=== PATIENT | female | born 1990 | race Caucasian/White ===

== ENCOUNTER 2017-03-14 12:08 | Inpatient (IN) ==
[2017-03-14] MEDS ORDERED: DINOPROSTONE 10 MG VAGINAL INSERT VG ONE (12:53)
[2017-03-14] MEDS ORDERED: TERBUTALINE 1 MG/ML VIAL SQ PRN (12:53)
[2017-03-14] MEDS ORDERED: LIDOCAINE 1% (10mg/ml) 2mL INJ PF SDV ID PRN (12:55)
[2017-03-14] MEDS ORDERED: METHYLERGONOVINE 0.2 MG/ML INJECTION IM PRN (12:55)
[2017-03-14] MEDS ORDERED: MAG-AL + SIM ORAL LIQUID 30ml PO PRN (12:55)
[2017-03-14] MEDS ORDERED: CARBOPROST 250 MCG/ML INJECTION IM PRN (12:55)
[2017-03-14] MEDS ORDERED: CALCIUM CARBONATE Chewable 500mg TABLET PO PRN (12:55)
[2017-03-14 13:21] VITALS: BMI 41.8
--- NOTE | 2017-03-14 15:01 | OB/GYN Progress Note ---
- Pain Control Comments: No Pain - Pelvic Exam Dilation (cm): 0 Effacement (%): 0 station: -4 Amniotic membrane status: Intact Comments: Anterior cervix, mod firm, Vtx by bedside sono - Contractions Monitor mode: External Contraction pattern: Irregular Contraction intensity: Mild - Status status: Category l - Assessment and Plan Assessment: induction ongoing Comments: at 39w5d with documented elevated bp in office, had 24 TUP greater than 300. UA was negative for UTI no other indication for proteinuria. Diagnosis of preeclampsia with out severe features. Discussed Indications for induction of labor along with R/B/A, discussed need indications for cervical ripening along with R/B/A . present for conversation. Questions elicited and answered. Cervidil placed with out difficulty tolerated by patient and fetus. Plts and AST/ALT wnl, Cr wnl. continue to monitor for signs and symptoms of severe preeclampsia
--- NOTE | 2017-03-14 19:21 | Anesthesia Preoperative Report ---
Anesthesia Epidural/Spinal Rec - Date and Time Date: 03/15/17 Preoperative Diagnosis: pre eclampsia Procedure: Labor Epidural Plan: Epidural - Vital Signs Vital Signs: Temperature 97.9 F 03/14/17 13:05 Pulse Rate 129 H 03/14/17 13:05 Respiratory Rate 16 03/14/17 13:05 Blood Pressure 134/77 03/14/17 13:05 /Para: P:0 - Medictaions & Allergies Inpatient Medications: Current Medications Acetaminophen (Tylenol) 500 - 1,000 mg PO Q4H PRN PRN Reason: Pain Al Hydroxide/Mg Hydroxide (Maalox Plus) 30 ml PO Q3H PRN PRN Reason: Indigestion Calcium Carbonate (Tums) 500 - 1,000 mg PO Q2H PRN PRN Reason: Indigestion Carboprost Tromethamine (Hemabate) 250 mcg IM O PRN PRN Reason: .Downtime Diphenhydramine HCl (Benadryl) 50 mg PO HS PRN PRN Reason: Sleep Lactated Ringer's (Lactated Ringers) 1,000 mls @ 999 mls/hr IV .Q1H1M PRN Lidocaine HCl (Xylocaine-Mpf 1% Vial) 0.2 mg ID O PRN PRN Reason: IV Start Methylergonovine Maleate (Methergine) 0.2 mg IM O PRN Misoprostol (Cytotec) 800 mcg CA ONCE PRN Terbutaline Sulfate (Brethine) 0.25 mg SQ PRN PRN Allergies/Adverse Reactions: Allergies Allergy/AdvReac Type Severity Reaction Status Date / Time No Known Drug Allergies Allergy Unknown Verified 03/14/17 15:30 - Home Medications Home Medications: Home Medications Medication Instructions Recorded Confirmed Type Acetaminophen 325 - 650 mg PO Q5HR PRN 03/13/17 03/14/17 History Vit Calc,Iron,Folic 1 each PO DAILY 03/13/17 03/14/17 History [ Vitamins] - Medical History Respiratory: DENIES: Asthma, Bronchitis, Chronic Obstructive Pulmonary Disease (COPD), Dyspnea, Orthopnea, Pulmonary Embolism, Pneumonia, Upper Respiratory Infection, Pulmonary Edema, Sleep Apnea, Tuberculosis, Other Cardiovascular: Reports: Hypertension (mild preeclampsia), 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 by client application support specialist) Gastrointestional: Reports: Gastroesophageal Reflux Disease (with ) Neuro/Musculoskeletal: Denies: HX.MS.OSAR, Back Problems, Cerebrovascular Accident, Depression, Headaches, Loss of Consciousness, Muscle Weakness, Neuromuscular Disorder, Paralysis, Paresthesia, Syncope, Seizures, Other Renal/Endocrine: DENIES: Diabetes Mellitus Type 1, Diabetes Mellitus Type 2, Renal Failure, Dialysis, Thyroid Disease, Weight Loss, Weight Gain, Other Other History: DENIES: Anesthesia Reactions, Now, Blood Transfusions, Chemotherapy , Cancer, Hemophilia, Malignant Hyperthermia, Sickle Cell Disease, Other - Surgical History Anesthesia Reactions: None Hx Family Anesthesia Reaction: No History of Motion Sickness: No - Social History Smoking Status: Never smoker Substance Use Type: does not use - Pertinent Findings Lab Data: CBC and BMP 03/14/17 13:11 03/14/17 13:08 BMP 03/14/17 13:08 Sodium 139 Potassium 3.8 Chloride 111 H Carbon Dioxide 19 L BUN 7.0 Creatinine 0.5 L Glucose 86 Calcium 9.1 Liver Function 03/14/17 Range/Units 13:08 Total Bilirubin 0.70 (0.20-1.30) MG/DL AST 19 (14-36) U/L ALT 34 (9-52) U/L Alkaline Phosphatase 116 (38-126) U/L Albumin 3.6 (3.5-5.0) G/DL Urine 03/14/17 Range/Units 14:18 Urine Color Yellow (YELLOW) Urine Clarity Clear Urine pH 6.5 (5.0-8.0) Ur Specific [place] 1.020 (1.015-1.025) Urine Protein Negative (NEGATIVE) Urine Glucose (UA) Negative (NEGATIVE) EKG Rhythm: Normal Sinus Rhythm - Physical Exam Respiratory Exam: lungs clear, bilateral breath sounds equal Cardiovascular Exam: regular rate and rhythm, no murmur - Airway Assessment Mallampati Score: II TMD: 3 Fingerbreadths Neck Extension: good Overall Assessment: may be difficult intubation - ASA ASA Score: 2 - Discussion Discussion: Discussed risks/options/alternatives of anesthesia and questions answered. Patient consents. Nursing pain assessment noted. Anesthesia Discussion: spouse, family member Attestation Statement: Prior to the delivery of any anesthetic medication, I examined the patient, developed the plan, obtained the patient's consent and discussed the risk and benefits of the procedure with the patient/guardian.
[2017-03-14] MEDS: ACETAMINOPHEN 500 MG TABLET PO PRN (21:52)
[2017-03-15] MEDS: ACETAMINOPHEN 500 MG TABLET PO PRN (04:26)
--- NOTE | 2017-03-15 06:22 | OB/GYN Progress Note ---
- Pain Control Pain control: Tolerating well Comments: Scott pt states they are moderate. no request for anesthesia at this time. - Pelvic Exam Dilation (cm): 1 Effacement (%): 70 station: -4 Amniotic membrane status: Intact - Contractions Monitor mode: External Contraction frequency: 3 Contraction pattern: Regular Contraction intensity: Moderate - Status status: Category l Comments: 120 moderate variability with Reactive, strip from overnight reviewed Cat 1 - Assessment and Plan Assessment: induction ongoing (Doyle Bulb placed without difficulty)
[2017-03-15] MEDS: SALINE FLUSH 10ml SYRINGE IV PRN ×2 (06:28→10:02)
[2017-03-15] MEDS ORDERED: D5LR 1,000 ML IV PRN (09:34)
[2017-03-15] MEDS ORDERED: OXYTOCIN DRIP 30 UNIT/500 ML ML IV PRN (09:34)
[2017-03-15] MEDS: LR 1,000 ML IV PRN ×2 (10:05→14:10)
[2017-03-15] MEDS ORDERED: AZITHROMYCIN IV 500 MG in NS 250ml 250 ML IV ONE (15:15)
[2017-03-15] MEDS ORDERED: ONDANSETRON 4 MG/2 ML INJECTION ONE (15:32)
[2017-03-15] MEDS ORDERED: LIDOCAINE 1.5% W/EPI 1:200,000 30ml SDV PF ONE (15:32)
[2017-03-15] MEDS ORDERED: EPHEDRINE 50mg/ml INJECTION ONE (15:35)
--- NOTE | 2017-03-15 16:01 | OB/GYN Progress Note ---
- Pain Control Pain control: Epidural - Pelvic Exam Dilation (cm): 4 Effacement (%): 70 station: -3 Amniotic membrane status: Intact - Contractions Monitor mode: External Contraction frequency: 3 Contraction pattern: Regular Contraction intensity: Moderate - Status status: Category ll - Assessment and Plan Assessment: induction ongoing Comments: Pt received epidural was have Cat 2 FHT with Variable deceleration Was noted to be 4/60/-3 head was well applied. OR crew was on stand by and decision was to proceed with amniotomy. Clear fluid and no cord prolapse. the Variable deceleration however increased in depth and duration. Discussion of need to proceed with PLTCS for non reassuring FHT. Discussed R/B/S to procedure including infection, injury to bowel bladder, infant, bleeding with need for transfusion and . Questions elicited and answered.
[2017-03-15] MEDS ORDERED: MORPHINE SULFATE PF 5mg/10ml INJ (Duramorph) ONE (16:02)
--- NOTE | 2017-03-15 16:07 | Operative Note ---
Operative Note - Date of Operation Date of Operation: 03/15/17 - General : 1 Para: 0 Expected Date of Delivery: 03/16/17 - Preoperative Diagnosis Nonreassuring FHT Preoperative Diagnosis: Preeclampsia wit out severe features - Postoperative Diagnosis nonreassuring FHT - Procedure Primary - Surgeon Surgeon: Lazaro Bojorquez DO - Laborer [place] Prashanth Eddy MD - Anesthesia Anesthesia Provider: Robert Johnson CRNA Anesthesia Type: Epidural - Estimated Blood Loss Estimated Blood Loss:: 600 - Findings Findings: viable male Comments: Cassandra - APGARS : 8/9 - Weight 3820 kg - Name [place] Name: Delta - Indications Indications: Non Reassuring FHT - Description of Procedure Description of Procedure: See Dictation #[id number] Report ID [id number]
[2017-03-15] MEDS ORDERED: SIMETHICONE 80 MG CHEWABLE TABLET PO PRN (16:36)
[2017-03-15] MEDS ORDERED: ACETAMINOPHEN 500 MG TABLET PO PRN (16:36)
[2017-03-15] MEDS ORDERED: OXYTOCIN DRIP 30 UNIT/500 ML ML IV SCH (16:36)
[2017-03-15] MEDS ORDERED: HYDROCORTISONE 2.5% CREAM 30gm RECTALLY PRN (16:36)
[2017-03-15] MEDS ORDERED: DiphenhydrAMINE 25 MG CAPSULE PO PRN (16:36)
[2017-03-15] MEDS ORDERED: CALCIUM CARBONATE Chewable 500mg TABLET PO PRN (16:36)
[2017-03-15] MEDS ORDERED: D5LR 1,000 ML IV SCH (16:36)
[2017-03-15] MEDS ORDERED: ONDANSETRON 4 MG/2 ML INJECTION IVP PRN (18:00)
[2017-03-15] MEDS ORDERED: NALOXONE 2 MG/2 ML INJECTION PFS IVP PRN (18:00)
[2017-03-15] MEDS ORDERED: DiphenhydrAMINE 50 MG/ML INJECTION IVP PRN (18:00)
[2017-03-15] MEDS: SIMETHICONE 80 MG CHEWABLE TABLET PO SCH ×2 (18:43→22:36)
[2017-03-15] MEDS: IBUPROFEN 800 MG TABLET PO PRN (23:51)
[2017-03-15] MEDS: Oxycodone/Acetaminophen 5/325 1 TAB PO PRN (23:51)
--- NOTE | 2017-03-16 08:10 | OB/GYN Progress Note ---
<Kaci Agosto - Last Filed: 03/16/17 08:08> OB-PP Progress Note - General POD:: POD1 - Subjective Date: 03/16/17 Lochia: Minimal Pain: contolled Voiding: voiding Nausea or Vomiting Present: No - Objective Vital Signs: Last Vital Signs Temp 98.0 F 03/16/17 04:15 Pulse 94 03/16/17 04:15 Resp 16 03/16/17 04:15 BP 109/54 03/16/17 04:15 Pulse Ox 99 03/16/17 04:15 Urine Output: good General: alert and oriented Abdomen: fundus firm Incision: intact Extremities: non-tender Edema: none Laboratory: Laboratory Results - last 24 hr 03/15/17 03/16/17 03/16/17 20:15 01:09 05:19 WBC 11.4 H 12.3 H 9.9 RBC 3.86 L 3.86 L 3.93 L Hgb 11.3 L 11.3 L 11.5 L Hct 34.3 L 34.1 L 35.3 L MCV 88.9 88.3 89.8 MCH 29.3 29.3 29.3 MCHC 32.9 33.1 32.6 RDW Std Deviation 42.1 42.4 43.8 Plt Count 142 158 146 MPV 11.2 10.7 11.0 - Assessment (1) S/P primary low transverse Status: Acute - Assessment Assessment: Primary C/S - Plan Plan: routine care (Doing well. No complaints. ) <Emely Pairkh - Last Filed: 03/16/17 11:15> OB-PP Progress Note - Subjective Date: 03/16/17 - Objective Vital Signs: Last Vital Signs Temp 98.0 F 03/16/17 08:20 Pulse 100 03/16/17 08:20 Resp 16 03/16/17 08:20 BP 108/58 03/16/17 08:20 Pulse Ox 99 03/16/17 08:20 Laboratory: Laboratory Results - last 24 hr 03/15/17 03/16/17 03/16/17 20:15 01:09 05:19 WBC 11.4 H 12.3 H 9.9 RBC 3.86 L 3.86 L 3.93 L Hgb 11.3 L 11.3 L 11.5 L Hct 34.3 L 34.1 L 35.3 L MCV 88.9 88.3 89.8 MCH 29.3 29.3 29.3 MCHC 32.9 33.1 32.6 RDW Std Deviation 42.1 42.4 43.8 Plt Count 142 158 146 MPV 11.2 10.7 11.0 - Assessment (1) S/P primary low transverse Status: Acute - Assessment Assessment: Preeclampsia - Plan Patient seen, and I agree with Kaci's note. Her BP is coming down well. Labs stable. Incision intact.
[2017-03-16] MEDS ORDERED: DOCUSATE CALCIUM 240 MG CAPSULE PO SCH (09:00)
--- NOTE | 2017-03-16 09:01 | Operative Note ---
DATE OF PROCEDURE: 03/14/2017 PREOPERATIVE DIAGNOSES 1. Single live intrauterine at 39 and 6 weeks gestational age. 2. Preeclampsia without severe features. 3. intolerance to labor. POSTOPERATIVE DIAGNOSES 1. Single live intrauterine at 39 and 6 weeks gestational age-- delivered. 2. Preeclampsia without severe features. 3. intolerance to labor. 4. Nuchal cord x 2. PROCEDURE: Primary delivery. SURGEON: Lazaro Bojorquez DO STONE CRUSHER OPERATOR: Prashanth Eddy MD BREAKER UP: Robert Johnson CRNA ANESTHESIA: Epidural anesthesia. COMPLICATIONS: None. ESTIMATED BLOOD LOSS: 600 mL IV FLUID: 1100 mL URINE OUTPUT: 250 mL clear urine at the end of the procedure. FINDINGS: Normal uterus, tubes and ovaries along with a viable male infant named [place] with Apgars of 8/9 and weight 3820 grams. INDICATIONS FOR PROCEDURE This was a G1, para 0 who presented to Labor and Delivery for induction of labor secondary to preeclampsia without severe features at term. She underwent cervical ripening with Cervidil and a Doyle bulb and Pitocin was started on the second day of induction, 03/14/2017. She got to a max dose of 6 on Pitocin and was noted to be dilated to 4 cm, 70% effaced and -3 station. She had had category 1 heart tracing for the majority of the induction with occasional variables and at this time the variables had increased to almost every contraction. The variability remained moderate. The Pitocin was halved at this time and the variables improved slightly. She had received an epidural anesthesia and was comfortable on exam. No cord was palpable and decision was made to AROM to see if this could continue to help with the variables. When the AROM was performed, clear fluid was noted and head was well applied but she continued to have variables and they progressed with deeper and longer duration. At this time decision was made to proceed with emergent secondary to heart tones. We discussed the risks, benefits and alternatives to procedure including infection, injury to bowel, bladder and baby , bleeding with the need for transfusion, and . Questions were elicited and answered. DESCRIPTION OF PROCEDURE The patient was taken to the operating room where epidural anesthesia was noted to be adequate. She was prepped and draped in the dorsal supine position with a leftward tilt. Skin was prepped with Betadine and she was prepped in the standard fashion. A Pfannenstiel incision was made with a scalpel and carried through the underlying layer to the fascia. A subcu blood vessel was noted. Attempt at cautery was performed which was unsuccessful and a [id number] stitch was placed which controlled bleeding. At this time the fascia was incised in the midline and fascial incision was extended laterally with the Palmer scissors. The rectus muscles were in the midline bluntly and the peritoneum was entered sharply with the Metzenbaum scissors. The peritoneal incision was then extended superiorly and inferiorly with good visualization of the bladder and the bladder blade was inserted. At this time the uterine incision was made in a transverse fashion. The uterine incision was extended bluntly with caudad-cephalad traction. At this time the infant's head was delivered atraumatically, followed by the body. Cord was clamped and cut and the infant was handed to the review assistant who was waiting. The uterus was exteriorized at this time and the uterine incision was repaired with 0 Monocryl in a running-locked fashion. The second layer of 0 Monocryl was used in an imbricating fashion to obtain hemostasis and a [id number] of 0 Monocryl was placed. Excellent hemostasis was noted and the uterus was returned to the abdomen. The gutters were cleared of all clot and debris and the peritoneum was reapproximated with 3-0 Monocryl in a running fashion. The fascia was then reapproximated with 0 Vicryl in a running fashion. A subcu layer was then closed with 2-0 plain gut in a running fashion and the skin was closed with 4-0 Monocryl and Dermabond. The patient tolerated the procedure well. Sponge, lap and needle counts were correct x 2 and the patient was taken to the recovery room in stable condition. KEISHA
[2017-03-16] MEDS: IBUPROFEN 800 MG TABLET PO PRN ×3 (09:17→23:55)
[2017-03-16] MEDS: SIMETHICONE 80 MG CHEWABLE TABLET PO SCH ×4 (09:17→23:56)
[2017-03-16] MEDS: Oxycodone/Acetaminophen 5/325 1 TAB PO PRN ×2 (15:40→23:55)
--- NOTE | 2017-03-16 19:29 | Anesthesia Postoperative Note ---
- Date and Time Date: 03/16/17 Time: 18:43 - Status Patient Participated in Evaluation: Patient Participated in Person Vital Signs: Temperature 98.1 F 03/16/17 12:30 Pulse Rate 100 03/16/17 12:30 Respiratory Rate 16 03/16/17 12:30 Blood Pressure 124/70 03/16/17 12:30 Pulse Oximetry 98 03/16/17 12:30 Respiratory Function: Airway Patent Cardiovascular Function: Regular Pulse Mental Status: Alert and Oriented Pain Intensity: 2 Hydration: Taking PO Fluids Complications During Recover: None Apparent Post Anesthesia Care Notes: full motor and sensation has returned - Follow-Up Instructions Instructions: Per Surgeon
[2017-03-17] MEDS: Oxycodone/Acetaminophen 5/325 1 TAB PO PRN (05:01)
[2017-03-17 07:42] VITALS: O2SAT 99
--- NOTE | 2017-03-17 08:09 | Discharge Instructions ---
Discharge Plan - Med Rec/Dispo Prescriptions: New Ibuprofen [Motrin] 800 mg PO Q8H PRN #30 tab PRN Reason: Pain Oxycodone/APAP 5/325 [Percocet 5/325] 1 - 2 tab PO Q4H PRN #40 tab PRN Reason: Pain Continue Acetaminophen 325 - 650 mg PO Q5HR PRN PRN Reason: Pain Vit Calc,Iron,Folic [ Vitamins] 1 each PO DAILY Discharge Instructions/Outpatient Orders: Final Provider Discharge Instructions Time Frame: 03/17/17, Location: Determined By Patient - Disposition 01 Discharged Home, Self-Care
--- NOTE | 2017-03-17 08:17 | OB/GYN Progress Note ---
OB-PP Progress Note - General PPD2 - Subjective Date: 03/17/17 Lochia: Minimal Pain: contolled - Objective Vital Signs: Last Vital Signs Temp 98.0 F 03/17/17 04:15 Pulse 94 03/17/17 04:15 Resp 16 03/17/17 04:15 BP 108/60 03/17/17 04:15 Pulse Ox 99 03/17/17 04:15 Urine Output: good General: alert and oriented Abdomen: fundus firm, non-tender Incision: normal, intact Extremities: non-tender - Assessment (1) S/P primary low transverse Status: Acute - Assessment Assessment: Preeclampsia - Plan Plan: routine care, discharge home, continue PNV f/u 1 week BP check
[2017-03-17 09:03] VITALS: BP 140/92; PULSE 72; RESP 18; TEMP 97.8
== END 2017-03-17 09:55 | disposition home or self-care (01) | DRG 766 ==
LOC: MC 12:49
PROVIDERS: ADMIT Obstetrics & Gynecology; ATTEND Obstetrics & Gynecology